=== PATIENT | male | born 1965 | race American Indian/Alaskan Native ===

== ENCOUNTER 2017-02-28 07:44 | Day surgery (SDC) | payer MEDICARE, OTHER ==
[~2017-02-28 07:44] MED LIST: ANCEF/STERILE WATER 2 GM/20 ML 2 GM/20 ML SYRINGE IV NR; NACL 0.9% 1000 ML 1,000 ML IV SCH
[2017-02-28] MEDS ORDERED: PEPCID IV NR (08:28)
[2017-02-28] MEDS ORDERED: VERSED IV NR (08:28)
--- NOTE | 2017-02-28 08:31 | Anesthesia Consultation ---
Anesthesia Consult and Med Hx - Airway Anesthetic Teeth Evaluation: Good ROM Head & Neck: Adequate Mental/Hyoid Distance: Adequate Mallampati Class: Class III Intubation Access Assessment: Possibly Difficult - Pulmonary Exam CTA: Yes - Cardiac Exam Cardiac Exam: RRR - Pre-Operative Health Status ASA Pre-Surgery Classification: ASA2, ASA3 (no previous anesthesia problems) Proposed Anesthetic Plan: General - Pulmonary Hx Smoking: Yes (patient dnies) Hx Sleep Apnea: Yes (2017-CPAP) - Cardiovascular System Hx Hypertension: Yes (5YRS) - Endocrine Hx Renal Disease: Yes Hx End Stage Renal Disease: Yes (pt no longer on dialysis; has had transplant)
--- NOTE | 2017-02-28 08:31 | Anesthesia Day of Surgery ---
Anesthesia Day of Surgery - Day of Surgery Patient Examined: Yes Patient H&P Reviewed: Yes Patient is NPO: Yes Beta Blockers: Yes
[2017-02-28] MEDS ORDERED: DIPRIVAN 10 MG/ML IV ONE (10:46)
[2017-02-28] MEDS ORDERED: DILAUDID ONE (10:46)
[2017-02-28] MEDS ORDERED: XYLOCAINE MPF 2% ONE (10:46)
[2017-02-28] MEDS ORDERED: THROMBIN (BOVINE) TP ONE ×2 (10:47→12:57)
[2017-02-28] MEDS ORDERED: GELFOAM TP ONE ×2 (10:47→12:57)
[2017-02-28] MEDS ORDERED: MARCAINE 0.5% 0 ML INFILTRATI ONE (10:47)
[2017-02-28] MEDS ORDERED: NACL 0.9% 500 ML 500 ML ONE (10:48)
[2017-02-28] MEDS ORDERED: NEO SYNEPHRINE ONE (11:05)
[2017-02-28] MEDS ORDERED: NACL 0.9% ONE (11:05)
[2017-02-28] MEDS ORDERED: ZOFRAN ONE (11:05)
[2017-02-28] MEDS ORDERED: ePHEDrine SULFATE ONE (11:25)
[2017-02-28] MEDS ORDERED: MARCAINE-EPI 0.5%-1:200,000 INFILTRATI ONE (11:29)
[2017-02-28] MEDS ORDERED: NACL 0.9% IR ONE (11:49)
[2017-02-28] MEDS ORDERED: MARCAINE-EPI/PF 0.5%-1:200,000 INFILTRATI ONE (11:49)
[2017-02-28] MEDS ORDERED: HEPARIN 10,000 UNITS/10 ML ONE (12:07)
--- NOTE | 2017-02-28 13:25 | Short Stay Summary ---
Short Stay Documentation - History H&P: obtained from office - Allergies and Medications Current Medications: Allergies lisinopril Allergy (Verified 02/27/17 16:32) Swelling of tongue and mouth Home Medications Medication Instructions Recorded Confirmed Last Taken Type Belatacept [Nulojix] 250 mg IV QMONTH 02/27/17 02/28/17 02/14/17 History Labetalol HCl 300 mg PO BID 02/27/17 02/28/17 02/28/17 History Mycophenolate [Cellcept] 250 mg PO BID 02/27/17 02/28/17 02/28/17 History NIFEdipine XL [Procardia Xl] 60 mg PO BID 02/27/17 02/28/17 02/28/17 History Prednisone [Prednisone] 5 mg PO DAILY 02/28/17 02/28/17 02/28/17 History Ranitidine HCl [Zantac 150 MG TAB] 150 mg PO BID 02/28/17 02/28/17 02/28/17 History Active Medications Famotidine (Pepcid) 20 mg IV PREOP NR Stop: 02/28/17 23:59 Last Admin: 02/28/17 09:10 Dose: 20 mg Cefazolin Sodium (Ancef/Sterile Water 2 Gm/20 Ml) 2 gm in 20 mls @ 80 mls/hr IV PREOP NR PRN Reason: Protocol Stop: 02/28/17 23:59 Sodium Chloride (Nacl 0.9% 1000 Ml) 1,000 mls @ 42 mls/hr IV DIRECT DOLLY Last Admin: 02/28/17 09:00 Dose: 42 mls/hr Midazolam HCl (Versed) 2 mg IV PREOP NR Stop: 02/28/17 23:59 Last Admin: 02/28/17 11:00 Dose: 2 mg - Brief post op/procedure progress note Procedure: Operative Report Operative Report: Date of procedure: 02/28/2017 Pre-operative diagnosis: Complication of hemodialysis access graft, left upper extremity Post-operative diagnosis: Same Procedure name(s): 1. Open repair of pseudoaneurysm of the left brachial artery above the elbow with ipsilateral limb vein patch Surgeon: Minor Billingsley MD Alumnae Secretary: [SUSAN Fried] Anesthesia: Gen. with local supplementation using half percent Marcaine with epinephrine EBL: Minimal Operative indication: Patient is a 51-year-old man with end-stage renal failure. He is now 5 years status post renal and splenic. He has a recently expanding mass involving the left elbow area at the site of the previous excision of an AV graft in the remote past. Findings: The mass was essentially pseudoaneurysm of the prosthetic AV graft stump which had been left at the brachial artery. No obvious sign of infection was noted but tissue was sent for culture. - Disposition Condition at discharge: Stable Disposition: DISCHARGED TO HOME OR SELFCARE - Discharge Diagnoses (1) Pseudoaneurysm Status: Acute Short Stay Discharge Plan Activity: advance as tolerated Weight Bearing Status: Weight Bear as Tolerated Diet: renal Wound: keep clean and dry Additional Instructions: PLEASE FOLLOW UP WITH THE SURGEON IN 14 DAYS. ICE PACK TO LEFT ARM IF NEEDED FOR SWELLING AND COMFORT. FOR ANY CONCERNS RELATED TO YOUR SURGERY, PLEASE CALL THE SURGEON. Follow up with: MINOR BILLINGSLEY MD [Staff Physician] - 14 Days Forms: Outpatient Surgery DC Inst. Prescriptions: HYDROcodone/APAP 5-325 [[place] 5/325] 1 each PO Q4HR PRN #90 tablet PRN Reason: Pain
--- NOTE | 2017-02-28 14:06 | Post Anesthesia Evaluation ---
- Post Anesthesia Evaluation Patient Participated: Yes Airway Patent: Yes Stable Respiratory Function: Yes Nausea/Vomiting: No Temp > 96.8F: Yes Pain Manageable: Yes Adequeate Hydration: Yes Anesthesia Complications: No
[2017-02-28 14:34] VITALS: BP 137/81
[2017-02-28] MEDS ORDERED: PERCOCET 5/325 PO ONE (15:28)
--- NOTE | 2017-02-28 15:34 | Event Note ---
Date: 02/28/17 Patient apparently had some minor trauma to his frenulum during use of the laryngeal mask. He complains of no pain during interview in the recovery room. Visual inspection of the area under the tongue shows a minor disruption of the mucosa at the base of the frenulum. There is no bleeding at the site. In my opinion, suturing will not be necessary. The patient was instructed to use salt water rinses of his mouth 3 times a day. He should report any worsening of his condition should it occur.
--- NOTE | 2017-02-28 15:44 | Operative Report ---
Operative Report Operative Report: Date of procedure: 02/28/2017 Pre-operative diagnosis: Complication of hemodialysis access graft, left upper extremity Post-operative diagnosis: Same Procedure name(s): 1. Open repair of pseudoaneurysm of the left brachial artery above the elbow with ipsilateral limb vein patch Surgeon: Tenzin Ruiz MD Site Surveyor: [Kavon Welch, SUSAN] Anesthesia: Gen. with local supplementation using half percent Marcaine with epinephrine EBL: Minimal Operative indication: Patient is a 51-year-old man with end-stage renal failure. He is now 5 years status post renal and splenic. He has a recently expanding mass involving the left elbow area at the site of the previous excision of an AV graft in the remote past. Findings: The mass was essentially pseudoaneurysm of the prosthetic AV graft stump which had been left at the brachial artery. No obvious sign of infection was noted but tissue was sent for culture. Procedure: The patient was placed on the table in the supine position. He was given appropriate anesthesia. The area over the left arm was prepped with a core prep solution and draped in the usual sterile fashion. Half percent Marcaine with epinephrine was used for infiltration at the incision sites. A linear incision was made over the top of the widest part of the mass just proximal to the left elbow. The soft tissue was divided around the mass down to the fascia medially and laterally. Dissection was focused on the more lateral portion of the mass to avoid any interaction with the nerve or artery at this point. After this was cleared off, the medial portion of the mass was dissected until I could clearly identify the brachial artery and the brachial nerve. The brachial artery was surrounded with Vesseloops proximally and distally. The brachial nerve was identified and spared. At this point, it was clear that the mass involved the actual brachial artery and appeared to be a pseudoaneurysm from the brachial artery. I elected to control the brachial artery suspicion that I would have to directly repair the brachial artery. The patient was heparinized with 3000 units of intravenous heparin. 3 minutes were allowed to pass. The brachial artery was occluded proximally and distally with vessel loops. The mass was opened which revealed the wall of the pseudoaneurysm and a lot of thrombus within. The thrombus appeared to be chronic with perhaps some small subacute areas. A portion of the wall was sent for pathology. A portion of the wall of thrombus was sent for culture. Dissection was carried out to the lateral portion of the brachial artery. Material that was consistent with a previous dialysis graft was noted around the opening into the brachial artery. This area was expanded with a Lopez scissors and debridement was done to remove all visible prosthetic graft. Percent guidance was used to identify the cephalic vein at the proximal forearm. The skin over the vein was anesthetized with half percent Marcaine with epinephrine. A small incision of about 3 cm in length was made over the top of the vein and a portion of the vein was harvested. The vein was then opened longitudinally and irrigated with heparinized saline. The vein patch was then sewn into place on the brachial artery arteriotomy using 50 proline. There was a lot of scar tissue around the artery and I was concerned about potentially stitching into the brachial nerves since it was densely adherent to the artery at this point. I did take full-thickness bites of the artery there during the suturing. Prior to closing the suture line, a # 2 Marleni was passed proximally and distally confirming patency of the artery above and below the anastomosis. The artery was flushed and vented to remove any air or debris. The suture line was completed. Flow started to the distal brachial artery with the development of an immediate and excellent palpable pulse at the left radial artery. Meticulous hemostasis was obtained. Closure was done with 3-0 Vicryl on the subcutaneous tissue in both incisions. The skin was closed with 4-0 Monocryl in both incisions. Dressings were applied. The patient tolerated the procedure well. Sponge, needle, and instrument counts were reported as correct. There was an easily palpable left radial pulse at the end of the procedure. The patient was taken from the operating room to the recovery room in stable condition.
== END 2017-02-28 16:10 | disposition home or self-care (01) ==
LOC: OR 07:44
PROVIDERS: ATTEND Surgery Vascular Surgery
DX: T82.898A Other specified complication of vascular prosthetic devices, implants and grafts, initial encounter (principal); I12.0 Hypertensive chronic kidney disease with stage 5 chronic kidney disease or end stage renal disease; N18.6 End stage renal disease; G47.30 Sleep apnea, unspecified; F17.210 Nicotine dependence, cigarettes, uncomplicated; Z87.01 Personal history of pneumonia (recurrent); Z98.890 Other specified postprocedural states; Z79.899 Other long term (current) drug therapy; Z94.0 Kidney transplant status; Z83.3 Family history of diabetes mellitus; Y83.2 Surgical operation with anastomosis, bypass or graft as the cause of abnormal reaction of the patient, or of later complication, without mention of misadventure at the time of the procedure
CPT/HCPCS: 36415; 37607; 84132; 87116; 88304; A4649; C1757; J0690; J1170; J1644; J2250; J2704; J7030; J7040; J2370; J2405

== ENCOUNTER 2018-06-21 07:17 | Day surgery (SDC) | payer MEDICARE, OTHER ==
--- NOTE | 2018-06-21 08:17 | Anesthesia Consultation ---
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
--- NOTE | 2018-06-21 08:18 | Anesthesia Day of Surgery ---
Anesthesia Day of Surgery - Day of Surgery Patient Examined: Yes Patient H&P Reviewed: Yes Patient is NPO: Yes
[2018-06-21] MEDS ORDERED: NACL 0.9% 500 ML 500 ML ONE (08:45)
[2018-06-21] MEDS ORDERED: PROTAMINE SULFATE ONE (08:45)
[2018-06-21] MEDS ORDERED: HEPARIN 10,000 UNITS/10 ML ONE (08:45)
[2018-06-21] MEDS ORDERED: MARCAINE-EPI 0.5%-1:200,000 INFILTRATI ONE ×3 (08:45→09:32)
[2018-06-21] MEDS ORDERED: THROMBIN (BOVINE) TP ONE (08:45)
[2018-06-21] MEDS ORDERED: GELFOAM TP ONE ×2 (08:45→10:02)
[2018-06-21] MEDS ORDERED: NITROGLYCERIN SYRINGE 0 ML ONE (08:45)
[2018-06-21 08:49] LABS: BUN/Creatinine Ratio 12; Blood Urea Nitrogen 13 mg/dL (9-20); Calcium 9.4 mg/dL (8.4-10.2); Hemolysis Index 40
[2018-06-21] MEDS ORDERED: XYLOCAINE MPF 2% ONE (08:55)
[2018-06-21 08:56] LABS: Basophils % (Auto) 0.7 % (0.0-1.8); Eosinophils # (Auto) 0.2 K/mm3 (0.0-0.4); Eosinophils % (Auto) 3.4 % (0.0-4.3); Hematocrit 44.5 % (35.5-45.6); Hemoglobin 15.3 gm/dl (11.8-15.2); Lymphocytes # (Auto) 1.8 K/mm3 (1.2-5.4); Lymphocytes % (Auto) 27.2 % (13.4-35.0); Mean Corpuscular HGB Conc 34 % (32-34); Mean Corpuscular Hemoglobin 33 pg (28-32); Mean Corpuscular Volume 95 fl (84-94); Monocytes # (Auto) 0.7 K/mm3 (0.0-0.8); Platelet Count 186 K/mm3 (140-440); Red Blood Count 4.68 M/mm3 (3.65-5.03); Red Cell Distribution Width 16.4 % (13.2-15.2)
[2018-06-21] MEDS ORDERED: SUBLIMAZE ONE ×2 (08:57→09:38)
[2018-06-21] MEDS ORDERED: DIPRIVAN 10 MG/ML IV ONE (08:57)
[2018-06-21] MEDS ORDERED: VERSED IV NR (09:00)
[2018-06-21] MEDS ORDERED: PEPCID PO NR (09:00)
[2018-06-21] MEDS ORDERED: NACL 0.9% IR ONE (09:32)
[2018-06-21] MEDS ORDERED: HEPARIN 10,000 UNITS/10 ML 2,000 UNIT in NACL 0.9% 500 ML 500 ML IR ONE (09:38)
[2018-06-21] MEDS ORDERED: THROMBIN SPRAYKIT (BOVINE) TP ONE (10:02)
[2018-06-21] MEDS ORDERED: ZOFRAN ONE (10:58)
--- NOTE | 2018-06-21 11:23 | Short Stay Summary ---
Short Stay Documentation Date of service: 06/21/18 - History H&P: obtained from office - Allergies and Medications Current Medications: Allergies lisinopril Allergy (Verified 02/27/17 16:32) Swelling of tongue and mouth Home Medications Medication Instructions Recorded Confirmed Last Taken Type Belatacept [Nulojix] 250 mg IV QMONTH 02/27/17 06/21/18 05/28/18 History Labetalol HCl 300 mg PO BID 02/27/17 06/17/18 06/21/18 06:15 History Mycophenolate [Cellcept] 250 mg PO BID 02/27/17 06/17/18 06/21/18 06:15 History NIFEdipine XL [Procardia Xl] 60 mg PO BID 02/27/17 06/17/18 06/21/18 06:15 History Prednisone 5 mg PO DAILY 02/28/17 06/17/18 06/21/18 06:15 History Emtricitabine/Tenofov Alafenam 1 each PO DAILY 06/17/18 06/17/18 06/21/18 06:15 History [Descovy 200-25 mg Tablet] Pravastatin [Pravachol] 20 mg PO QHS 06/17/18 06/17/18 06/21/18 06:15 History traMADol [Ultram] 50 mg PO Q4HR PRN 06/17/18 06/17/18 06/21/18 06:15 History Active Medications Famotidine (Pepcid) 20 mg PO PREOP NR Stop: 06/21/18 23:59 Last Admin: 06/21/18 08:27 Dose: 20 mg Cefazolin Sodium (Ancef/Sterile Water 2 Gm/20 Ml) 2 gm in 20 mls @ 80 mls/hr IV PREOP NR; Protocol Stop: 06/21/18 23:59 Sodium Chloride (Nacl 0.9% 1000 Ml) 1,000 mls @ 42 mls/hr IV DIRECT DOLLY Last Admin: 06/21/18 08:10 Dose: 42 mls/hr Midazolam HCl (Versed) 2 mg IV PREOP NR Stop: 06/21/18 23:59 Last Admin: 06/21/18 08:27 Dose: 2 mg - Brief post op/procedure progress note Date of procedure: 06/21/18 Pre-op diagnosis: complication of AV access, right arm Post-op diagnosis: same Procedure: revision of rue av access with vein patch repair of the right brachial artery above the elbow using radial vein Anesthesia: GETA, local (1/2% marcaine w epi) Findings: large pseudoaneurysm of the arterial anastomosis Surgeon: MINOR BILLINGSLEY Estimated blood loss: minimal Pathology: list (pseudoaneurysm) Specimen disposition: to lab Condition: stable - Hospital course Hospital course: Benign - Disposition Condition at discharge: Good Disposition: DC-01 TO HOME OR SELFCARE Short Stay Discharge Plan Activity: advance as tolerated Diet: advance as tolerated Wound: per your surgeon's advice Follow up with: MINOR BILLINGSLEY MD [Staff Physician] - 7 Days Prescriptions: HYDROcodone/APAP 5-325 [[place] 5/325] 1 each PO Q6HR PRN #30 tablet PRN Reason: Pain
--- NOTE | 2018-06-21 11:29 | Operative Report ---
Operative Report Operative Report: Date of procedure: 06/21/2018 Pre-operative diagnosis: Complication of right upper extremity arteriovenous graft (pseudoaneurysm formation at arterial anastomosis) Post-operative diagnosis: Same Procedure name(s): Revision of right upper extremity arteriovenous graft with repair of brachial artery using ipsilateral radial vein above the elbow Surgeon: Tenzin Ruiz MD Hvac Project Engineer: None Anesthesia: Gen. with local supplementation using half percent Marcaine with epinephrine EBL: Minimal Operative indication: Patient is a 53-year-old man with a nonfunctioning right upper extremity arteriovenous graft. He has had progressive pain over the site where the arterial anastomosis is as he has an enlarging pseudoaneurysm. Findings: Large pseudoaneurysm involving the arterial anastomosis. Successful repair using ipsilateral adjacent radial vein. The radial artery has a high takeoff and was spared during the procedure. Procedure: The patient was placed on the table in supine position. He was given appropriate anesthesia. The area over the right arm was prepped with ChloraPrep solution and draped in the usual sterile fashion. Real-time ultrasound was used to identify the pseudoaneurysm as well as the brachial artery. The basilic vein was identified as well as the potential vein patch. A linear incision was made above the elbow on the medial side of the arm over the pseudoaneurysm. Dissection was carried out to identify first the radial artery proximally. The radial artery was surrounded with a vessel loop. Deeper dissection revealed the brachial artery which was also surrounded with a vessel loop. Distal dissection was done to identify the brachial artery distal to the pseudoaneurysm. This was also surrounded with a vessel loop. The patient was then heparinized with 2000 units of intravenous heparin. As much dissection as could be reasonably done around the pseudoaneurysm was done to isolate it from the surrounding tissue. The brachial nerve was easily identified and easily spared. After 3 minutes, the brachial artery was controlled proximally distally. The pseudoaneurysm was opened and then removed from the top of the brachial artery. The scar tissue on the brachial artery was debrided and then a longitudinal arteriotomy was made to reasonable portions of the brachial artery proximally and distally. The total arteriotomy was about 2 cm in length. There was an adjacent radial vein of good caliber. This was harvested and then split down the middle. This made for an excellent vein patch. Anastomosis created between the vein patch and the artery using running 6-0 Prolene. All vessels were flushed and vented removing any air or debris. The patch was completed and flow restored to the distal brachial artery without incident. There was an easily palpable radial pulse at the wrist. Meticulous hemostasis was obtained. The arterial side of the graft was then harvested from the soft tissue. The entire area of the graft for about 23 cm above the artery was dilated and aneurysmal. This was meticulously dissected from the surrounding tissue. This was sent as a specimen. Meticulous hemostasis was obtained. The wound was infiltrated with half percent Marcaine with epinephrine. Closure was done with 3-0 Vicryl in the subcutaneous tissue and 4-0 subcuticular PDS. Sterile dressings were applied. Sponge, needle, and instrument counts were reported as correct. The patient tolerated the procedure well and was taken from the operating room to the recovery room in stable condition. There was an easily palpable left radial pulse.
[2018-06-21 12:10] VITALS: BP 111/70
== END 2018-06-21 12:42 | disposition home or self-care (01) ==
LOC: OR 07:17
PROVIDERS: ATTEND Surgery Vascular Surgery
DX: T82.898A Other specified complication of vascular prosthetic devices, implants and grafts, initial encounter (principal); I12.0 Hypertensive chronic kidney disease with stage 5 chronic kidney disease or end stage renal disease; N18.6 End stage renal disease; E78.00 Pure hypercholesterolemia, unspecified; I10 Essential (primary) hypertension; G47.30 Sleep apnea, unspecified; Z90.5 Acquired absence of kidney; Z94.0 Kidney transplant status; Z98.890 Other specified postprocedural states; Z79.899 Other long term (current) drug therapy; Z99.2 Dependence on renal dialysis; Z87.891 Personal history of nicotine dependence; Z88.8 Allergy status to other drugs, medicaments and biological substances; Y83.8 Other surgical procedures as the cause of abnormal reaction of the patient, or of later complication, without mention of misadventure at the time of the procedure; Y92.89 Other specified places as the place of occurrence of the external cause
CPT/HCPCS: 36415; 36832; 80048; 85025; 88304; A4649; J0690; J1644; J2250; J2405; J2704; J3010; J7030; J7040; J2720